=== PATIENT | male | born 1970 ===

== ENCOUNTER 2017-12-24 08:06 | Emergency (ER) | payer OTHER ==
[2017-12-24 08:15] VITALS: RESP 18
[2017-12-24] MEDS ORDERED: Oxycodone/Acetaminophen 5/325 mg Tab PO STA (08:51)
[2017-12-24] MEDS ORDERED: Oxycodone/Acetaminophen 5/325 mg Tab ONE (09:30)
--- NOTE | 2017-12-24 10:34 | C.PDOC ---
History Of Present Illness 47 y/o male presents to the ER complaining of pain in the right posterior thigh which radiates down the leg for the past 3 days. 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 Patient reports that he has a history of bad back strain which was several years go. He notes that he has pain in his left buttock, posterior thigh, and cuff as well. Patient denies having pain in the lower back. Time Seen by Provider: 12/24/17 08:17 Chief Complaint (Nursing): Lower Extremity Problem/Injury History Per: Patient History/Exam Limitations: no limitations Onset/Duration Of Symptoms: Days Current Symptoms Are (Timing): Still Present Severity: Moderate Past Medical History Reviewed: Historical Data, Nursing Documentation, Vital Signs Vital Signs: Last Vital Signs Temp 98.0 F 12/24/17 11:07 Pulse 88 12/24/17 11:07 Resp 18 12/24/17 11:07 BP 137/91 H 12/24/17 11:07 Pulse Ox 98 12/24/17 11:33 - Medical History PMH: No Chronic Diseases Surgical History: No Surg Hx Family History: States: No Known Family Hx - Social History Hx Alcohol Use: No Hx Substance Use: No - Immunization History Hx Tetanus Toxoid Vaccination: No Hx Influenza Vaccination: No Hx Pneumococcal Vaccination: No Review Of Systems Except As Marked, All Systems Reviewed And Found Negative. Musculoskeletal: Positive for: Leg Pain (pain in right posterior thigh) Neurological: Negative for: Weakness, Numbness Physical Exam - Physical Exam Appears: Non-toxic, No Acute Distress Skin: Normal Color, Warm Head: Atraumatic, Normacephalic Eye(s): bilateral: Normal Inspection Nose: Normal Oral Mucosa: Moist Neck: Supple Chest: Symmetrical Cardiovascular: Rhythm Regular Respiratory: Normal Breath Sounds, No Rales, No Rhonchi, No Wheezing Extremity: No Deformity, No Swelling Neurological/Psych: Oriented x3, Normal Speech, Other (no focal deficits) ED Course And Treatment O2 Sat by Pulse Oximetry: 98 (RA) Pulse Ox Interpretation: Normal - Other Rad LS spine xray X-Ray: Viewed By Me, Read By Radiologist Interpretation: Accession No. : [id number]. Patient Name / ID : YUSUF HENDRIX / [id number]. Exam Date : 12/24/2017 08:52:37 ( Approved ). Study Comment : Sex / Age : M / 47Y. Creator : Dayo Gordon MD. Dictator : Molding Process Technician : Automatic Glove Former : Dayo Gordon MD. Approver2 : Report Date : 12/24/2017 12:59:38. My Comment : . PROCEDURE: Lumbar spine radiographs 12/24/2017. HISTORY: Non-traumatic pain left lower extremity. COMPARISON: No prior. FINDINGS: BONES: No evidence of acute compression fractures nor retropulsed fragments. Mild chronic appearing anterior stature loss of the T11 through L3 segments in somewhat decreasing order of severity. Findings likely degenerative. DISC SPACES: Multilevel degenerative spondylosis. There is disc space narrowing most notably affecting the L5-S1 level and to a lesser degree remaining levels. Endplate eburnation with small anterolateral osteophyte formation. Facets also hypertrophic L5-S1 through the L2-L3 levels in decreasing order of severity. OTHER FINDINGS: None. IMPRESSION: No acute fractures. Minor chronic anterior stature loss of several lower thoracic and low upper lumbar segments as above. Multilevel degenerative spondylosis as above. - CT Scan/US Venous duplex Other Rad Studies (CT/US): Read By Radiologist, Radiology Report Reviewed CT/US Interpretation: Accession No. : [id number]. Patient Name / ID : YUSUF HENDRIX / [id number]. Exam Date : 12/24/2017 10:33:30 ( Approved ). Study Comment : Sex / Age : M / 47Y. Creator : Cristóbal Sorensen. Dictator : Cristóbal Sorensen. Molding Process Technician : Automatic Glove Former : Uriah Avila MD. Approver2 : Report Date : 12/24/2017 12:03:13. My Comment : . PROCEDURE: Left Lower Extremity Venous Duplex Exam. HISTORY: Atraumatic pain in the LLE. PRIORS: None. TECHNIQUE: Left common femoral, femoral, popliteal and posterior tibial, peroneal and great saphenous veins were evaluated. Flow was assessed with color Doppler, compressibility, assessment of phasic flow and augmentation response. Report prepared by Cristóbal Sorensen, AGUSTINA, RVT. FINDINGS: LEFT: 1. Common Femoral Vein: 1.1. Compressibility - Fully compressible: Thrombus - None : Flow - Phasic: Augmentation -Normal: Reflux - None. 2. Femoral Vein: 2.1. Compressibility - Fully compressible: Thrombus - None: Flow - Phasic: Augmentation -Normal: Reflux - None. 3. Popliteal Vein: 3.1. Compressibility - Fully compressible: Thrombus - None: Flow - Phasic: Augmentation -Normal: Reflux - None. 4. Posterior Tibial Vein: 4.1. Compressibility - Fully compressible: Thrombus - None: Flow - Phasic: Augmentation -Normal: Reflux - None. 5. Peroneal Vein: 5.1. Compressibility - Fully compressible: Thrombus - None: Flow - Phasic: Augmentation -Normal: Reflux - None. 6. Great Saphenous Vein: 6.1. Compressibility - Fully compressible: Thrombus - None: Flow - Phasic: Augmentation - Normal: Reflux - None. OTHER FINDINGS: IMPRESSION: No evidence of deep or superficial vein thrombosis of the left lower extremity with excellent venous flow. Normal valve function noted of the left side. Normal venous flow noted in the right common femoral vein. Progress Note: Lumbar Spine X-Ray and Venous Duplex Scan ordered and reviewed. Patient has been given Toradol IV, Valium PO, and Percocet PO. Venous duplex is negative for DVT. On re-evaluation patient feels better and is stable to be d/c home with Clinic follow up. Disposition - Disposition Referrals: [facility] [Outside] Disposition: HOME/ ROUTINE Disposition Time: 11:24 Condition: IMPROVED Additional Instructions: Follow up in Clinic within 1-2 days. Return to ED if feel worse. Prescriptions: Ibuprofen [Motrin Tab] 600 mg PO Q8 #30 tab Gabapentin [Neurontin] 400 mg PO QPM #10 cap oxyCODONE/Acetaminophen [Percocet 5/325 mg Tab] 1 tab PO QID PRN #20 tab PRN Reason: Pain diaZEpam [Valium] 2 mg PO TID #15 tab Instructions: [facility] Forms: [facility] (Arabic), Work Excuse - Clinical Impression Clinical Impression: [facility] - PA / CONSUMER PRODUCT ADVISOR / Resident Statement MD/DO has reviewed & agrees with the documentation as recorded. - Scribe Statement The provider has reviewed the documentation as recorded by the Beth Mahajan Provider Attestation All medical record entries made by the Beth were at my direction and personally dictated by me. I have reviewed the chart and agree that the record accurately reflects my personal performance of the history, physical exam, medical decision making, and the department course for this patient. I have also personally directed, reviewed, and agree with the discharge instructions and disposition.
[2017-12-24 11:07] VITALS: BP 137/91; PULSE 88; TEMP 98
[2017-12-24 11:27] VITALS: O2SAT 98
--- NOTE | 2017-12-24 13:00 | RAD ---
PROCEDURE: Lumbar spine radiographs 12/24/2017 HISTORY: Non-traumatic pain left lower extremity. COMPARISON: No prior. FINDINGS: BONES: No evidence of acute compression fractures nor retropulsed fragments. Mild chronic appearing anterior stature loss of the T11 through L3 segments in somewhat decreasing order of severity. Findings likely degenerative. DISC SPACES: Multilevel degenerative spondylosis. There is disc space narrowing most notably affecting the L5-S1 level and to a lesser degree remaining levels. Endplate eburnation with small anterolateral osteophyte formation. Facets also hypertrophic L5-S1 through the L2-L3 levels in decreasing order of severity. OTHER FINDINGS: None. IMPRESSION: No acute fractures. Minor chronic anterior stature loss of several lower thoracic and low upper lumbar segments as above. Multilevel degenerative spondylosis as above.
--- NOTE | 2017-12-24 13:56 | VASCLAB ---
PROCEDURE: Left Lower Extremity Venous Duplex Exam. HISTORY: Atraumatic pain in the LLE PRIORS: None. TECHNIQUE: Left common femoral, femoral, popliteal and posterior tibial, peroneal and great saphenous veins were evaluated. Flow was assessed with color Doppler, compressibility, assessment of phasic flow and augmentation response. Report prepared by AGUSTINA Bailey, RVT FINDINGS: LEFT: 1. Common Femoral Vein: 1.1. Compressibility - Fully compressible: Thrombus - None : Flow - Phasic: Augmentation -Normal: Reflux - None. 2. Femoral Vein: 2.1. Compressibility - Fully compressible: Thrombus - None: Flow - Phasic: Augmentation -Normal: Reflux - None. 3. Popliteal Vein: 3.1. Compressibility - Fully compressible: Thrombus - None: Flow - Phasic: Augmentation -Normal: Reflux - None. 4. Posterior Tibial Vein: 4.1. Compressibility - Fully compressible: Thrombus - None: Flow - Phasic: Augmentation -Normal: Reflux - None. 5. Peroneal Vein: 5.1. Compressibility - Fully compressible: Thrombus - None: Flow - Phasic: Augmentation -Normal: Reflux - None. 6. Great Saphenous Vein: 6.1. Compressibility - Fully compressible: Thrombus - None: Flow - Phasic: Augmentation - Normal: Reflux - None. OTHER FINDINGS: IMPRESSION: No evidence of deep or superficial vein thrombosis of the left lower extremity with excellent venous flow. Normal valve function noted of the left side. Normal venous flow noted in the right common femoral vein.
== END 2017-12-24 12:05 | disposition home or self-care (01) ==
LOC: C.ER 08:06
DX: M54.30 Sciatica, unspecified side (principal)
CPT/HCPCS: 72100; 93971; 96372; 99284; J1885